=== PATIENT | male | born 1985 | race Caucasian/White ===

== ENCOUNTER 2021-03-10 09:37 | Emergency (ER) | payer OTHER ==
[~2021-03-10 09:37] MED LIST: NOHOMEMEDICATIONS; PERCOCET 5-3251 EACH PO
== END 2021-03-10 10:04 | disposition left against medical advice (07) ==
LOC: M.ERS 09:37
DX: S91.301A Unspecified open wound, right foot, initial encounter (principal); Z53.21 Procedure and treatment not carried out due to patient leaving prior to being seen by health care provider